=== PATIENT | female | born 1945 | race Caucasian/White ===

== ENCOUNTER 2016-07-25 20:53 | Inpatient (IN) | payer MEDICARE, BC ==
--- NOTE | ~2016-07-25 | HP ---
Unit #: [id number] #: [id number] Patient: JEFFY CARRASCO [id number] [address] [place], [place] [address] [id number] I MR#: [id number] NAME: JEFFY CARRASCO ROOM: [facility] Age: Sex: F Admission Date: 07/25/2016 : 1945 Attending Physician: Rubina Treviño M.D. Primary Care Physician: Jorge Abad M.D. HISTORY AND PHYSICAL CHIEF COMPLAINT Shortness of breath. HISTORY OF PRESENT ILLNESS This patient is a 70-year-old female with past medical history significant for coronary artery disease, hypertension, dyslipidemia, peripheral vascular disease. Also has a history of peripheral arterial disease, COPD likely, presents with a complaint of cough, shortness of breath, increasing sputum production for two to three days and chest pressure. Was diagnosed with pneumonia at an outside hospital and admitted for further evaluation. Had elevated troponin as well. I am seeing the patient at bedside. She denies any nausea, vomiting, diarrhea. PHYSICAL EXAMINATION VITAL SIGNS: Temperature 98, pulse 87, respirations 12, blood pressure 130/70. NEUROLOGICAL: Awake, alert, oriented. No neuro deficit. HEENT: PERRLA. NECK: Supple. No JVD. CHEST: Bilateral air entry, bilateral mild rhonchi. GI: Nontender, soft. Bowel sounds positive. EXTREMITIES: No edema. SKIN: No rashes, no ulcers. LYMPHATIC: No lymphadenopathy. DIAGNOSTIC STUDIES LABORATORY: Creatinine is 1.3, BUN 26. Troponin 0.14. White count is 11, hemoglobin 8, hematocrit 27, platelet count is 293. PAST MEDICAL HISTORY As described above. SOCIAL HISTORY Half pack smoker per day. Denies alcohol or drug abuse. FAMILY HISTORY None as per record. MEDICATIONS As per MAR includin. Aspirin. 2. Bystolic. Unit #: [id number] #: [id number] Patient: JEFFY CARRASCO 3. Calcium, 4. Multivitamin. 5. Niacin. 6. Prilosec. 7. Ropinirole. 8. Rosuvastatin. 9. Tylenol. SURGICAL HISTORY 1. Bladder surgery. 2. History of coronary stent. 3. Foot surgery. 4. Hysterectomy. 5. Vascular stent. At this point, plan is to continue patient on both antibiotics. ASSESSMENT AND PLAN 1. Pneumonia. 2. Pulmonary edema. 3. Elevated troponin. 4. Non-ST elevation myocardial infarction. 5. History of coronary artery disease. 6. Chronic obstructive pulmonary disease exacerbation. Plan is to start patient on IV antibiotics, bronchodilator, IV steroids, GI and DVT prophylaxis, 2D echo, BMP. Cardiology consultation. The patient will be closely monitored. Will get a noncontrast CT of the chest. Please see orders for detailed plan. Dictated by Madeline Trinidad/tatyana TD: 07/26/2016 08:38 JOB #: [id number] HISTORY AND PHYSICAL Page 1 of 1 X Rubina Treviño MD X HISTORY AND PHYSICAL
--- NOTE | ~2016-07-25 | US37 ---
[facility] A Service of [facility] & [facility] RADIOLOGY TEXT RESULTS PATIENT: JEFFY CARRASCO LOCATION: [facility] 564-01 : 43 UNIT #: [id number] AGE: [address]: Rubina Treviño MD SEX: F ORDER DR: [id number] [facility] [address] [place], [place] [address] [id number] I MR#: [id number] Acc #: [id number] NAME: JEFFY CARRASCO : 1945 SEX: F STUDY DATE/TIME: 07/27/2016 10:19 UNIT: [facility] ROOM: [facility] STUDY DESCRIPTION: US Carotid W/Doppler Bilateral Attending Physician: Rubina Treviño M.D. Ordering Physician: Rubina Treviño M.D. Primary Care Physician: Jorge Abad M.D. MEDICAL IMAGING REPORT This report is preliminary unless electronic signature is present EXAM Carotid ultrasound. HISTORY Visual disturbance for 1 month. Hypertension. Blurred vision. FINDINGS Ultrasound examination of the carotid arteries was performed with alexis-scale, color Doppler, and spectral Doppler evaluation. There is moderate partly calcified plaque in the carotid bulbs extending into the proximal internal carotid arteries bilaterally. Peak systolic velocities in the internal carotid arteries are 141 cm percent on the right and 304 cm/sec on the left, indicating greater than 70% stenoses in the internal carotid arteries bilaterally, by NASCET criteria. There is also elevated velocity in the external carotid arteries bilaterally measuring 271 cm/sec on the right and 337 cm/sec on the left. There is antegrade flow in both vertebral arteries. IMPRESSION 1. Greater than 70% stenosis in the internal carotid arteries bilaterally by NASCET criteria. 2. Moderate partly calcified plaque in the carotid bulbs extending into the proximal internal carotid arteries bilaterally. 3. Antegrade flow in both vertebral arteries. STAT * RESULT Dictated by... Serge Lara M.D. [facility] A Service of [facility] & [facility] RADIOLOGY TEXT RESULTS PATIENT: JEFFY CARRASCO LOCATION: [facility]- : [birth year] UNIT #: [id number] AGE: [address]: Rubina Treviño MD SEX: F ORDER DR: THIS IS AN ELECTRONICALLY VERIFIED REPORT Serge Lara M.D. at 07/27/2016 10:09 PM XAVI/rodney TD: 07/27/2016 14:52 JOB #: [id number] MEDICAL IMAGING REPORT Page 1 of 1 COPY
--- NOTE | ~2016-07-25 | EKG ---
PATIENT: JEFFY CARRASCO UNIT #: [id number] Ventricular Rate: 70 BPM Atrial Rate: 70 BPM P-R Interval: 154 ms QRS Duration: 88 ms Q-T Interval: 396 ms QTC Calculation(Bezet): 427 ms P [place]: 66 degrees Calculated R [place]: 53 degrees Calculated T [place]: 0 degrees Diagnosis Line: Normal sinus rhythm Diagnosis Line: Left ventricular hypertrophy with repolarization Diagnosis Line: abnormality Diagnosis Line: Abnormal ECG Diagnosis Line: When compared with ECG of 26-JUL-2016 09:55, Diagnosis Line: (unconfirmed) Diagnosis Line: T wave inversion now evident in Inferior leads Diagnosis Line: Confirmed by ELI CARDOZA MD ([id number]) on 07/28/2016 Diagnosis Line: 7:27:09 AM INTERPRETING MD: SONY KAISER
--- NOTE | ~2016-07-25 | EKG ---
PATIENT: JEFFY CARRASCO UNIT #: [id number] Ventricular Rate: 59 BPM Atrial Rate: 59 BPM P-R Interval: 158 ms QRS Duration: 94 ms Q-T Interval: 418 ms QTC Calculation(Bezet): 413 ms P [place]: 56 degrees Calculated R [place]: 35 degrees Calculated T [place]: 35 degrees Diagnosis Line: Sinus bradycardia Diagnosis Line: Nonspecific ST abnormality Diagnosis Line: Otherwise normal ECG Diagnosis Line: No previous ECGs available Diagnosis Line: Confirmed by ELIO ROB MD ([id number]) on 07/29/2016 Diagnosis Line: 10:45:38 PM INTERPRETING MD: LIANE KAISER
--- NOTE | ~2016-07-25 | CR72 ---
[facility] A Service of [facility] RADIOLOGY TEXT RESULTS PATIENT: JEFFY CARRASCO LOCATION: [facility] 564-01 : [birth year] UNIT #: [id number] AGE: [address]: Rubina Treviño MD SEX: F ORDER DR: [id number] [facility] [address] [place], [place] [address] [id number] I MR#: [id number] Acc #: [id number] NAME: JEFFY CARRASCO : 1945 SEX: F STUDY DATE/TIME: 07/26/2016 4:57 UNIT: [facility] ROOM: [facility] STUDY DESCRIPTION: CR Chest Single View Portable Attending Physician: Rubina Treviño M.D. Ordering Physician: Rubina Treviño M.D. Primary Care Physician: Jorge Abad M.D. MEDICAL IMAGING REPORT This report is preliminary unless electronic signature is present EXAM AP portable chest 07/26/2016. HISTORY 70-year-old female admitted through the ED yesterday with reported history of pneumonia, congestive heart failure. TECHNIQUE AP portable upright chest x-ray. FINDINGS Diffuse interstitial and airspace opacity remains present throughout both lungs but appears improved radiographically since yesterday. This may represent improving pulmonary edema, correlate clinically. Cardiomegaly is stable. No visible dense airspace consolidation, pneumothorax or pleural effusion. IMPRESSION Radiographic improvement in diffuse interstitial and alveolar pulmonary opacity since yesterday. Stable cardiomegaly. Dictated by... Tonny Blevins M.D. THIS IS AN ELECTRONICALLY VERIFIED REPORT Tonny Blevins M.D. at 07/30/2016 5:01 PM VICTOR MANUEL/dayanara TD: 07/26/2016 08:45 JOB #: [id number] MEDICAL IMAGING REPORT Page 1 of 1 COPY
--- NOTE | ~2016-07-25 | CO ---
Unit #: [id number] #: [id number] Patient: JEFFY CARRASCO [id number] [facility]. [place], [place] [address] [id number] I MR#: [id number] NAME: JEFFY CARRASCO ROOM: 564 Age: 70 Sex: F Admission Date: 07/25/2016 : 1945 Attending Physician: Rubina Treviño M.D. Primary Care Physician: Jorge Abad M.D. Consultation Date: 07/26/2016 CONSULTATION REPORT REASON FOR CONSULTATION Elevated troponin. HISTORY OF PRESENT ILLNESS This is a 70-year-old white female, known to Dr. Schneider with a past medical history of coronary artery disease, non-ST elevation myocardial infarction, status post PCI and drug-eluting stent in the first obtuse marginal on 03/23/2012 at [facility]. A 2D echocardiogram was completed on 04/03/2015, which revealed an ejection fraction of 60% to 65% with mild mitral and aortic regurgitation. Additional past medical history includes peripheral artery disease, status post bilateral fem-pop; hypertension; hyperlipidemia; COPD; and also tobacco abuse. The patient has not had any repeat stress test or cardiac catheterization since 03/2012. She presented to the [facility] Emergency Department with complaints of shortness of breath. She states that a couple weeks ago, she had bronchitis, but began to feel better. Yesterday, she was walking out to her car from jury duty and she became very short of breath. She has had a cough and some chills. She also reports a fever up to 102 degrees. Her cough has been productive. She has had some nasal drainage. There are no reports of dizziness, palpitations, or syncope. There are no reports of chest pain; however, she is fairly sedentary and cannot walk very far due to left hip pain due to some arthritis. She sleeps with one pillow. There are no reports of PND or orthopnea. In the emergency department, her white blood cell count was initially elevated at 24.9. Chest x-ray revealed some diffuse infiltrates and stable cardiomegaly. Influenza was negative. BNP was elevated at 630. Initial cardiac enzymes were elevated with a troponin of 0.12. She was given IV antibiotics and one dose of Lasix 40 mg IV. She was transferred to [facility] for acute hypoxic respiratory failure and suspected pneumonia. Cardiology was consulted due to elevated troponin. Again, the patient denies any chest pain. She has had some shortness of breath. Troponin peaked at 0.19, but it started decreasing, is currently 0.14. EKG revealed sinus rhythm with an old inferior infarct. There were no acute changes noted. PAST MEDICAL HISTORY 1. Coronary artery disease, non-ST elevation myocardial infarction, status post cardiac catheterization at [facility] on 03/23/2012, which revealed left main normal. LAD 30% to 40%. First obtuse marginal 90%. Second obtuse marginal 20%. Right coronary artery, small with diffuse nonobstructive disease. Status post PROMUS drug-eluting stent in Unit #: [id number] #: [id number] Patient: JEFFY CARRASCO the first obtuse marginal of the left circumflex. 2. A 2D echocardiogram on 04/03/2015 revealed a left ventricular ejection fraction of 60% to 65%. Mild mitral and aortic regurgitation. Mild tricuspid regurgitation. 3. Peripheral artery disease, status post bilateral fem-pop. 4. Hypertension. 5. Hyperlipidemia. 6. COPD. 7. Restless legs syndrome. 8. Osteoarthritis. 9. Active tobacco abuse. PAST SURGICAL HISTORY 1. Cardiac catheterization. 2. Hysterectomy. 3. Bilateral fem-pop. 4. History of bladder sling. HOME MEDICATIONS List of home medications includes Requip 0.5 mg p.o. b.i.d., Crestor 20 mg p.o. at bedtime, Bystolic 10 mg p.o. at bedtime, multivitamin one tablet p.o. daily, lisinopril 10 mg p.o. daily, need to clarify all of home medications. ALLERGIES No known drug allergies. SOCIAL HISTORY The patient is an active smoker. She smokes half pack of cigarettes per day and has smoked for over 30 years. There are no reports of alcohol or drug use. The patient is fairly sedentary and cannot walk long distances due to left hip pain and shortness of breath. FAMILY HISTORY Significant for heart disease in her mother and father. REVIEW OF SYSTEMS A 10-point review of systems negative except for details noted above in HPI. PHYSICAL EXAMINATION VITAL SIGNS: Temperature 98.3, pulse 75, blood pressure 126/37. CONSTITUTIONAL: This is a 70-year-old white female, who is in no acute distress. SKIN: Warm and dry. NECK: Supple. No jugular vein distention. No hepatojugular reflux. Normal carotid upstrokes. Bilateral carotid bruits auscultated. Loud on the left. HEART: S1 and S2. Regular rate and rhythm. Systolic ejection murmur at the left sternal border grade 2/6. No rubs or gallops. LUNGS: Bilateral breath sounds have good air entry throughout all lung torres, but are diminished in the bases. Respirations are even and nonlabored. No rales, rhonchi, or wheezes. ABDOMEN: Soft, nontender, and nondistended. Positive bowel sounds auscultated x4 quadrants. No ascites noted. EXTREMITIES: Lower extremities have trace pretibial pitting edema. DP and PT pulses are 2+. Capillary refill is less than 2 seconds. Unit #: [id number] #: [id number] Patient: JEFFY CARRASCO DIAGNOSTIC STUDIES LABORATORY RESULTS: White blood cell count 11.5, hemoglobin 8.4, hematocrit 27.1, platelets 293. Sodium 136, potassium 3.9, chloride 103, CO2 of 23, BUN 26, creatinine 1.3, glucose 94, AST 20, ALT 18, alkaline phos 66. Previous white blood cell count 24.9, troponin 0.12, 0.19, and 0.14. BNP 630. Influenza A and B negative. IMAGING STUDIES: Chest x-ray reveals improvement in diffuse interstitial infiltrates. Stable cardiomegaly. CARDIOVASCULAR STUDIES: EKG reveals sinus rhythm with an old inferior infarct. No acute ST or T-wave changes. IMPRESSION 1. Acute hypoxic respiratory failure. 2. Pneumonia. 3. Acute congestive heart failure, likely diastolic. 4. Indeterminate troponin. 5. Valvular heart disease. Repeat 2D echocardiogram pending. 6. Previous left ventricular ejection fraction 60% to 65%. 7. Coronary artery disease with history of non-ST elevation myocardial infarction, status post PCI and stent in the first obtuse marginal, 03/23/2012. 8. Hypertension. 9. Hyperlipidemia. 10. Chronic obstructive pulmonary disease. 11. Anemia. 12. Possible urinary tract infection. 13. Active tobacco abuse. PLAN 1. The patient presented to the hospital with complaints of shortness of breath. She was admitted on respiratory failure and pneumonia. 2. Cardiology was consulted due to elevated troponin. 3. The patient denies chest pain, but has had some shortness of breath with exertion. 4. We will trend cardiac enzymes and repeat EKG. 5. There is some evidence of congestive heart failure on imaging and exam. 6. The patient will be started on Lasix, strict intake and output, and fluid restriction. 7. She will be continued on a beta-stefanie, PEEWEE inhibitor, and statin. 8. Once pneumonia is treated and her lungs improve, she will need a repeat ischemic workup. 9. A 2D echocardiogram has been ordered to assess LV function and valves. 10. The patient has been advised to refrain from tobacco abuse. Dictated by... Nita Roque APRN for Madeline Quijano/linda TD: 07/27/2016 16:36 JOB #: [id number] Unit #: [id number] #: [id number] Patient: JEFFY CARRASCO CONSULTATION REPORT Page 1 of 1 X X CONSULTATION REPORT
[2016-07-25] MEDS ORDERED: BYSTOLIC10 MG PO (23:30)
[2016-07-25] MEDS ORDERED: REQUIP0.5 MG PO (23:30)
[2016-07-25] MEDS ORDERED: CRESTOR10 MG PO (23:30)
[2016-07-25] MEDS ORDERED: LISINOPRIL20 MG PO (23:31)
[2016-07-25] MEDS ORDERED: MULTI VITAMIN1 EACH PO (23:31)
[2016-07-25] MEDS ORDERED: ASPIRIN EC81 M1 PO (23:33)
[2016-07-25] MEDS ORDERED: NIACIN500 M3 PO (23:33)
[2016-07-26 05:36] LABS: BASOPHIL# 0.1 X10e3 (0-0.3); BASOPHIL% 0.6 % (0-2.5); EOSINOPHIL# 0.1 X10e3 (0-0.7); EOSINOPHIL% 1.1 % (0.0-7.0); HEMATOCRIT 27.1 % (35.0-45.0); HEMOGLOBIN 8.4 gm/dL (12.0-16.0); LYMPHOCYTE% 26.2 % (17.0-45.0); MEAN CORPUSCULAR HEMOGLOBIN 23.6 PG (28-34); MEAN CORPUSCULAR HGB CONC 31.1 g/dL (30-36); MEAN PLATELET VOLUME 7.5 FL (6.5-11.5); MONOCYTE# 0.6 X10e3 (0-1.0); MONOCYTE% 5.1 % (3.0-12.0); NEUTROPHIL# 7.7 X10e3 (1.5-7.1); PLATELET COUNT 293 X10e3 (140-420); RED BLOOD COUNT 3.57 X10e (3.90-5.30); RED CELL DISTRIBUTION WIDTH 17.4 % (11.0-15.5); WHITE BLOOD COUNT 11.5 X10e3 (4.0-10.5)
[2016-07-26 05:43] LABS: DIFF IND NO
[2016-07-26 06:21] LABS: ALBUMIN SERUM 3.1 g/dL (3.5-5.0); BILIRUBIN,TOTAL 0.8 mg/dL (0.2-2.0); CALCIUM SERUM 9.7 mg/dL (8.4-10.2); CREATININE SERUM 1.3 mg/dL (0.6-1.4); MAGNESIUM 1.8 mg/dL (1.6-3.0); POTASSIUM 3.9 mmol/L (3.5-5.1)
[2016-07-26 13:16] LABS: CHOLESTEROL 135 mg/dL (0-200); HDL CHOLESTEROL 36 mg/dL (35-95); LDL CHOLESTEROL 62 mg/dL (-130); LDL/HDL RATIO 2 RATIO (0-4); TRIGLYCERIDES 187 mg/dL (10-160)
[2016-07-27 05:46] LABS: BASOPHIL% 0.1 % (0-2.5); HEMATOCRIT 28.3 % (35.0-45.0); HEMOGLOBIN 8.8 gm/dL (12.0-16.0); LYMPHOCYTE# 0.7 X10e3 (1.0-3.5); LYMPHOCYTE% 6.5 % (17.0-45.0); MEAN CELL VOLUME 75.1 FL (83-96); MEAN CORPUSCULAR HEMOGLOBIN 23.3 PG (28-34); MEAN CORPUSCULAR HGB CONC 31.1 g/dL (30-36); MEAN PLATELET VOLUME 7.5 FL (6.5-11.5); MONOCYTE# 0.1 X10e3 (0-1.0); MONOCYTE% 0.8 % (3.0-12.0); NEUTROPHIL# 9.3 X10e3 (1.5-7.1); NEUTROPHIL% 92.6 % (40-75); PLATELET COUNT 281 X10e3 (140-420); RED BLOOD COUNT 3.77 X10e (3.90-5.30); RED CELL DISTRIBUTION WIDTH 17.5 % (11.0-15.5)
[2016-07-27 05:56] LABS: DIFF IND NO
[2016-07-27 06:22] LABS: ALBUMIN SERUM 3.5 g/dL (3.5-5.0); BILIRUBIN,TOTAL 0.6 mg/dL (0.2-2.0); BUN/CREATININE RATIO 25.38; CALCIUM SERUM 9.5 mg/dL (8.4-10.2); CREATININE SERUM 1.3 mg/dL (0.6-1.4); POTASSIUM 4.8 mmol/L (3.5-5.1); PROTEIN TOTAL SERUM 6.6 g/dL (6.0-8.3)
[2016-07-28 04:55] LABS: HEMATOCRIT 27.9 % (35.0-45.0); HEMOGLOBIN 8.5 gm/dL (12.0-16.0); MEAN CELL VOLUME 75.3 FL (83-96); MEAN CORPUSCULAR HGB CONC 30.6 g/dL (30-36); MEAN PLATELET VOLUME 7.9 FL (6.5-11.5); RED BLOOD COUNT 3.7 X10e (3.90-5.30); RED CELL DISTRIBUTION WIDTH 17.8 % (11.0-15.5); WHITE BLOOD COUNT 19.5 X10e3 (4.0-10.5)
[2016-07-28 05:09] LABS: ALBUMIN SERUM 3.5 g/dL (3.5-5.0); BILIRUBIN,TOTAL 0.8 mg/dL (0.2-2.0); BUN/CREATININE RATIO 26.66; CALCIUM SERUM 9.4 mg/dL (8.4-10.2); CREATININE SERUM 1.5 mg/dL (0.6-1.4); GLOM FILT RATE Estimated 34.5 mL/min (>60); POTASSIUM 4.2 mmol/L (3.5-5.1); PROTEIN TOTAL SERUM 6.8 g/dL (6.0-8.3)
[2016-07-28] MEDS ORDERED: OMNICEF300 MG PO (15:12)
[2016-07-28] MEDS ORDERED: SYMBICORT INH (15:13)
[2016-07-28] MEDS ORDERED: OXYGEN (15:13)
[2016-07-28] MEDS ORDERED: ALBUTEROL17 GM INH (15:16)
[2016-07-28] MEDS ORDERED: LASIX20 MG PO (15:17)
[2016-07-28] MEDS ORDERED: COREG PO (15:17)
[2016-07-28] MEDS ORDERED: PREDNISONE PO (15:19)
== END 2016-07-28 16:44 | disposition home or self-care (01) | DRG 291 ==
LOC: CICCU3 20:53 → C5C 07-27 18:44
PROVIDERS: Internal Medicine; Internal Medicine Cardiovascular Disease
DX: I11.0 Hypertensive heart disease with heart failure (principal); J18.9 Pneumonia, unspecified organism; J96.01 Acute respiratory failure with hypoxia; J44.1 Chronic obstructive pulmonary disease with (acute) exacerbation; J44.0 Chronic obstructive pulmonary disease with (acute) lower respiratory infection; I50.31 Acute diastolic (congestive) heart failure; I25.10 Atherosclerotic heart disease of native coronary artery without angina pectoris; F17.210 Nicotine dependence, cigarettes, uncomplicated; Z95.5 Presence of coronary angioplasty implant and graft; I25.2 Old myocardial infarction; E78.5 Hyperlipidemia, unspecified; D64.9 Anemia, unspecified; Z71.6 Tobacco abuse counseling; G25.81 Restless legs syndrome; Z90.710 Acquired absence of both cervix and uterus; I65.29 Occlusion and stenosis of unspecified carotid artery; Z79.82 Long term (current) use of aspirin
CPT/HCPCS: 71010; 71250; 80053; 80061; 82308; 83735; 83880; 84443; 84484; 85025; 85027; 93005; 93306; 93880; 94640; 94760; J0696; J1650; J1940; J1956; J2930; J3475